=== PATIENT | female | born 1945 | race Caucasian/White ===

== ENCOUNTER → 2017-03-11 | Outpatient (CLI) | payer MEDICARE, BC ==
[~2017-03-11] MED LIST: AMLO5 PO; ASPI81CH PO; Daily Multiple1 EACH PO; EEMT HS PO; LEVSOD50 PO; LINZESS145 MCG PO; LOSARTAN-HCTZ1 EAC2 PO; MECL12.5 PO; Omeprazole20 M1; POTASSIUM600 MG PO; PROBIOTIC1 EAC3 PO; Vitamin D2000 UNIT PO
== END | disposition home or self-care (01) ==
LOC: LAB 13:16
DX: R30.0 Dysuria (principal)
CPT/HCPCS: 87086

== ENCOUNTER 2017-10-21 11:36 | Day surgery (SDC) | payer MEDICARE, BC ==
[~2017-10-21] VITALS: Ht 165.1 cm; Wt 60.3 kg
[2017-10-21] MEDS ORDERED: Omeprazole20 M1 (12:02)
== END 2017-10-21 13:57 | disposition home or self-care (01) ==
LOC: ORSCSDS 11:36
PROVIDERS: Internal Medicine Gastroenterology
PROC: 0DBP8ZX Excision of Rectum, Via Natural or Artificial Opening Endoscopic, Diagnostic (ICD-10-PCS; principal; 2017-10-21 13:00)
PROC: 0DBN8ZX Excision of Sigmoid Colon, Via Natural or Artificial Opening Endoscopic, Diagnostic (ICD-10-PCS; principal; 2017-10-21 13:00)
DX: Z12.11 Encounter for screening for malignant neoplasm of colon (principal); K63.5 Polyp of colon; K62.1 Rectal polyp; K64.8 Other hemorrhoids; E78.5 Hyperlipidemia, unspecified; I10 Essential (primary) hypertension; Z87.891 Personal history of nicotine dependence; Z79.82 Long term (current) use of aspirin; Z79.899 Other long term (current) drug therapy
CPT/HCPCS: 88305

== ENCOUNTER → 2018-05-03 | Outpatient (CLI) | payer MEDICARE, BC ==
[2018-05-03 18:02] LABS: Appearance, Urine Clear (Clear); Bilirubin, Urine Neg (Neg); Blood, Urine 3+ (Neg); Color, Urine Yellow (P-Yellow); Glucose Qualitative, Urine Neg (Neg); Ketones, Urine 1+ (Neg); Leukocyte Esterase, Urine 1+ (Neg); Nitrite, Urine Neg (Neg); Protein, Urine 1+ (Neg); Specific Gravity, Urine 1.015 (1.003-1.022); Urobilinogen, Urine 1+ (Normal)
[2018-05-03 18:25] LABS: Squamous Epithelial Cells Mod /hpf (Few)
[2018-05-03 18:26] LABS: Bacteria Not Seen /hpf; Calcium Oxalate Crystals Few /hpf; White Blood Cells, Urine 0-2 /hpf (0-5)
== END | disposition home or self-care (01) ==
LOC: LAB 13:05 → LAB SHORT 13:05
PROVIDERS: Nurse Practitioner Family
DX: R31.29 Other microscopic hematuria (principal)
CPT/HCPCS: 81001

== ENCOUNTER 2022-12-12 07:46 | Day surgery (SDC) | payer MEDICARE, BC ==
[~2022-12-12] VITALS: Ht 165.1 cm; Wt 77.2 kg
[2022-12-12] MEDS ORDERED: METO50ER PO (08:48)
[2022-12-12] MEDS ORDERED: CELEBREX200 MG PO (08:49)
[2022-12-12 10:54] VITALS: BP 142/91
--- NOTE | 2022-12-12 10:56 | NUR ---
12/12/22 1056 Flavia Contreras DC'D, PT TOLERATED WELL. CATH INTACT. COBAN/GAUZE IN PLACE
--- NOTE | 2022-12-12 15:08 | NUR ---
12/12/[address] [place] [address] COLONOSCOPY COMPLETED WITHOUT ISSUES, PATIENT WAS ADEQUATELY SEDATED THROUGHOUT. ONCE COMPLETED BED WAS TURNED AND PATIENT MAINTAINED SEDATED STATE UNTIL JUST PRIOR TO START OF EGD. RN COMPLETED A SEDATION CHECK AND GAVE A 20 MG DOSE AFTER TURNING THE BED AND WHILE DR QUINONES GRABBED THE SCOPE. DR QUINONES STARTED TO INSERT THE SCOPE AND START THE PROCEDURE, PATIENT REACTED AND MOVED AND BRIEFLY OPENED HER EYES. PATIENT APPEARED ADEQUATELY SEDATED SO RN GAVE 20 MG PROPOFOL ONE MINUTE AFTER THE PREVIOUS DOSE. DR QUINONES WAS ABLE TO PASS THE SCOPE AND RN CONTINUED TO GIVE 20 MG PROPOFOL DOSES AT ONE MINUTE INTERVALS. DURING THIS TIME PATIENT WAS MOVING HER ARM SLIGHTLY AND BENDING HER WRIST WHICH WAS CAUSING THE IV TO STOP RUNNING. RN ASSISTED PATIENT WITH WRIST AND PULLED BACK ON IV TO ALLOW IT TO FLOW WHILE THESE DOSES WERE GIVEN. THEN PATIENT PULLED ARM UP TO HER MOUTH AND RN STATED "SHE'S MOVING A LOT, I'M GOING TO GIVE HER 30 MG ON THE NEXT DOSE" AND GAVE THE 30 MG DOSE. VITALS REMAINED STABLE AND MD AWARE OF DOSE. WHEN IT WAS TIME FOR THE NEXT DOSE OF PROPOFOL PATIENT STARTED MOVING HER ARM TOWARD HER MOUTH AGAIN AND DR QUINONES INSTRUCTED RN TO GIVE 20 MG. PATIENT CONTINUED TO MOVE ARM AND MAKE NOISE AND DR QUINONES CONTINUED TO INSTRUCT RN TO GIVE 20 MG DOSES FOR THE NEXT 3 DOSES AT THE APPROPRIATE TIME INTERVALS. EGD WAS COMPLETED AND DR QUINONES REMOVED SCOPE. PATIENT BEGAN COUGHING AND SPO2 SATS DECREASED CONTINUOUSLY TO MID 70'S. AT THIS TIME RN CALLED ANESTHESIA INTO THE ROOM AND ACCESSORY PERSONNEL. PATIENT TURNED SUPINE AND ORAL SUCTIONING PERFORMED AND AMBU BAG APPLIED WITH DIRECTION OF DR GUTIÉRREZ. PATIENT BEGAN BREATHING SPONTANEOUSLY AND REMOVED HER IV FROM HER ARM. A NEW IV WAS PLACED. SPO2 RETURNED TO 100% ON NC. PATIENT WAS CONSCIOUS AND VITAL SIGNS STABLE. LUNGS AUSCULATATED BY DR GUTIÉRREZ, PER DR GUTIÉRREZ NO NEED FOR ASPIRATION PROTOCOL. PER DR GUTIÉRREZ PATIENT TO DISCHARGE WITH INCENTIVE SPIROMETER. PATIENT TRANSFERRED TO STEP DOWN UNIT.
== END 2022-12-12 10:50 | disposition home or self-care (01) ==
LOC: ORSCSDS 07:46
PROVIDERS: Internal Medicine Gastroenterology
PROC: 0DBN8ZX Excision of Sigmoid Colon, Via Natural or Artificial Opening Endoscopic, Diagnostic (ICD-10-PCS; principal; 2022-12-12 09:00)
PROC: 0DBE8ZX Excision of Large Intestine, Via Natural or Artificial Opening Endoscopic, Diagnostic (ICD-10-PCS; principal; 2022-12-12 09:00)
PROC: 0DB78ZX Excision of Stomach, Pylorus, Via Natural or Artificial Opening Endoscopic, Diagnostic (ICD-10-PCS; principal; 2022-12-12 09:00)
PROC: 0DBM8ZX Excision of Descending Colon, Via Natural or Artificial Opening Endoscopic, Diagnostic (ICD-10-PCS; principal; 2022-12-12 09:00)
PROC: 0DBP8ZX Excision of Rectum, Via Natural or Artificial Opening Endoscopic, Diagnostic (ICD-10-PCS; principal; 2022-12-12 09:00)
DX: R10.84 Generalized abdominal pain (principal); R19.5 Other fecal abnormalities; D12.4 Benign neoplasm of descending colon; K63.5 Polyp of colon; K62.1 Rectal polyp; R19.4 Change in bowel habit; K29.70 Gastritis, unspecified, without bleeding; Z87.891 Personal history of nicotine dependence; E03.9 Hypothyroidism, unspecified; Z86.73 Personal history of transient ischemic attack (TIA), and cerebral infarction without residual deficits; I10 Essential (primary) hypertension; Z79.899 Other long term (current) drug therapy
CPT/HCPCS: 88305; 88342; J2704; J7120

== ENCOUNTER → 2022-12-23 | Outpatient (CLI) | payer MEDICARE, BC ==
[~2022-12-23] MED LIST changes: +CELEBREX200 MG PO; +METO50ER PO
[2022-12-25 10:15] LABS: Stool Occult Bld Immuno 1 Negative (NEGATIVE)
== END | disposition home or self-care (01) ==
LOC: LAB SHORT 17:10 → LAB 17:10 → LAB FUT 12-17 13:30
PROVIDERS: Internal Medicine Gastroenterology
DX: R19.5 Other fecal abnormalities (principal)
CPT/HCPCS: G0328

== ENCOUNTER → 2023-01-01 | Outpatient (CLI) | payer MEDICARE, BC ==
[2023-01-03 12:08] LABS: Stool Occult Bld Immuno 1 Negative (NEGATIVE)
== END ==
LOC: LAB 17:55 → LAB SHORT 17:55
PROVIDERS: Internal Medicine Gastroenterology
DX: R19.5 Other fecal abnormalities (principal)
CPT/HCPCS: 82274

== ENCOUNTER → 2023-01-19 | Outpatient (CLI) | payer MEDICARE, BC ==
[2023-01-19 14:12] LABS: BASOPHILS ABSOLUTE AUTO 0.06 K/mm3 (0.00-0.23); BASOPHILS PERCENT AUTO 1 % (0-2); EOSINOPHILS PERCENT AUTO 5 % (0-6); Hematocrit 42.3 % (33.0-51.0); Hemoglobin 14.2 g/dL (11.5-16.0); IMMATURE GRAN ABSOLUTE AUTO 0.02 K/mm3 (0.00-0.10); IMMATURE GRAN PERCENT AUTO 0 % (0-1); LYMPHOCYTES ABSOLUTE AUTO 1.51 K/mm3 (0.84-5.20); LYMPHOCYTES PERCENT AUTO 24 % (21-46); MONOCYTES ABSOLUTE AUTO 0.59 K/mm3 (0.16-1.47); MONOCYTES PERCENT AUTO 10 % (4-13); Mean Corpuscular HGB 30.3 pg (26.0-34.0); Mean Corpuscular HGB Conc 33.6 g/dL (31.5-36.5); Mean Corpuscular Volume 90 fL (80-100); Mean Platelet Volume 8.7 fL (9.1-12.4); NEUTROPHILS ABSOLUTE AUTO 3.73 K/mm3 (1.96-9.15); NEUTROPHILS PERCENT AUTO 60 % (41-73); Platelet Count 309 K/mm3 (150-400); RDW Coefficient Variation 13.9 % (11.7-14.2); RDW Standard Deviation 45.8 fL (35.1-46.3); Red Blood Cell Count 4.69 M/mm3 (3.80-5.20); White Blood Cell Count 6.21 K/mm3 (4.00-11.30)
== END ==
LOC: LAB SHORT 14:08 → LAB 14:08
PROVIDERS: Physician Assistant Medical
DX: R60.0 Localized edema (principal)
CPT/HCPCS: 85025; 85379

== ENCOUNTER → 2023-02-04 | Outpatient (CLI) | payer MEDICARE, BC ==
[2023-02-05 15:53] LABS: Adenovirus F 40/41 Not Detected (NOT DETECT); Astrovirus Not Detected (NOT DETECT); Campylobacter Sp Not Detected (NOT DETECT); Cryptosporidium Not Detected (NOT DETECT); Cyclospora Cayetanensis Not Detected (NOT DETECT); E. Coli O157 Not Detected (NOT DETECT); Entamoeba Histolytica Not Detected (NOT DETECT); Enteroaggregative E. coli-EAEC Not Detected (NOT DETECT); Enteropathogenic E. coli-EPEC Not Detected (NOT DETECT); Enterotoxigenic E. coli-ETEC Not Detected (NOT DETECT); Giardia Lamblia Not Detected (NOT DETECT); Norovirus GI/GII Not Detected (NOT DETECT); Plesiomonas Shigelloides Not Detected (NOT DETECT); Rotavirus A Not Detected (NOT DETECT); Salmonella Sp Not Detected (NOT DETECT); Sapovirus Not Detected (NOT DETECT); Shiga Toxin-prod E. coli-STEC Not Detected (NOT DETECT); Shigella/Enteroin E. coli-EIEC Not Detected (NOT DETECT); Vibrio Cholerae Not Detected (NOT DETECT); Vibrio Sp Not Detected (NOT DETECT); Yersinia Enterocolitica Not Detected (NOT DETECT)
== END ==
LOC: LAB 14:30 → LAB SHORT 14:30
PROVIDERS: Family Medicine
DX: R19.7 Diarrhea, unspecified (principal)
CPT/HCPCS: 87507

== ENCOUNTER → 2024-10-20 | Outpatient (CLI) | payer MEDICARE, BC ==
[2024-10-20 17:24] LABS: Campylobacter Sp Not Detected (NOT DETECT); E. Coli O157 Not Detected (NOT DETECT); Enteroaggregative E. coli-EAEC Not Detected (NOT DETECT); Enteropathogenic E. coli-EPEC Not Detected (NOT DETECT); Enterotoxigenic E. coli-ETEC Not Detected (NOT DETECT); Salmonella Sp Not Detected (NOT DETECT); Shiga Toxin-prod E. coli-STEC Not Detected (NOT DETECT); Shigella/Enteroin E. coli-EIEC Not Detected (NOT DETECT); Vibrio Sp Not Detected (NOT DETECT)
[2024-10-25 11:49] LABS: OVA AND PARASITE,FECAL INTERP Negative (Negative)
== END | disposition home or self-care (01) ==
LOC: LAB 06:30 → LAB SHORT 06:30
PROVIDERS: Family Medicine
DX: A09 Infectious gastroenteritis and colitis, unspecified (principal)
CPT/HCPCS: 87015; 87045; 87046; 87177; 87205; 87209; 87507; 87899